=== PATIENT | male | born 1970 | race African-American/Black ===

== ENCOUNTER 2017-12-06 17:23 | Emergency (ER) | payer OTHER | END 2017-12-06 20:06 | disposition left against medical advice (07) | LOC: ERS 17:23 | DX: R10.9 Unspecified abdominal pain (principal); F17.210 Nicotine dependence, cigarettes, uncomplicated | CPT/HCPCS: 36416 ==

== ENCOUNTER 2018-05-21 14:25 | Emergency (ER) | payer SELFPAY ==
[2018-05-21 14:59] LABS: Hemoglobin 17.2 g/dL (14.0-18.0); Mean Corpuscular HGB CONC 34.7 g/dL (32.0-36.0); Mean Corpuscular Hemoglobin 30.2 pg (27.0-31.0); Mean Corpuscular Volume 87.1 fL (78.0-98.0); Platelet Count 265 thou/uL (130-400); RBC Distribution Width 12.1 % (11.5-14.5); Red Blood Cell (RBC) Count 5.69 mill/uL (4.70-6.10); White Blood Cell (WBC) Count 5.8 thou/uL (4.8-10.8)
[2018-05-21 15:19] LABS: Eosinophils 2 % (0-10); Lymphocytes 26 % (21-51); MDiff Complete? YES; Monocytes 4 % (0-10); Neutrophil 68 % (42-75); PLT Morphology Comment Appears Adequate
[2018-05-21 15:24] LABS: ALT (SGPT) 22 U/L (8-55); AST (SGOT) 18 U/L (5-34); Albumin 3.8 g/dL (3.5-5.0); Alkaline Phosphatase 62 U/L (40-150); Anion Gap 12 mmol/L (10-20); BUN (Urea Nitrogen) 11 mg/dL (8.9-20.6); Bilirubin, Total 0.4 mg/dL (0.2-1.2); Calc. Creatinine Clearance 0 mL/min (70-130); Carbon Dioxide 23 mmol/L (22-29); Chloride 102 mmol/L (98-107); Estimated GFR-MDRD Greater than 90; Globulin 2.8 g/dL (2.4-3.5); Glucose 151 mg/dL (70-105); Potassium 3.9 mmol/L (3.5-5.1); Protein, Total 6.6 g/dL (6.0-8.3); Sodium 133 mmol/L (136-145)
[2018-05-21 17:22] LABS: Troponin I Less than 0.010 ng/mL (< 0.028)
== END 2018-05-21 17:50 | disposition home or self-care (01) ==
LOC: ERS 14:25
DX: R42 Dizziness and giddiness (principal); R55 Syncope and collapse; R73.9 Hyperglycemia, unspecified; I10 Essential (primary) hypertension; K21.9 Gastro-esophageal reflux disease without esophagitis; F17.210 Nicotine dependence, cigarettes, uncomplicated
CPT/HCPCS: 36415; 80053; 84484; 85025; 93005; 94760

== ENCOUNTER 2020-01-16 02:03 | Emergency (ER) | payer SELFPAY ==
[2020-01-16] MEDS ORDERED: Nitroglycerin 0.4 MG TAB 1 EACH ONE (02:42)
[2020-01-16] MEDS ORDERED: Nitroglycerin 0.4mg/Hour PATCH ONE (02:42)
[2020-01-16] MEDS ORDERED: Aspirin Chewable 81 MG TAB ONE (02:42)
[2020-01-16 02:43] LABS: Hemoglobin 16.5 g/dL (14.0-18.0); Mean Corpuscular HGB CONC 33.9 g/dL (32.0-36.0); Mean Corpuscular Hemoglobin 29.9 pg (27.0-31.0); RBC Distribution Width 11.9 % (11.5-14.5); Red Blood Cell (RBC) Count 5.52 mill/uL (4.70-6.10)
[2020-01-16 02:44] LABS: ALT (SGPT) 28 U/L (8-55); AST (SGOT) 25 U/L (5-34); Alkaline Phosphatase 82 U/L (40-110); Anion Gap 16 mmol/L (10-20); BUN (Urea Nitrogen) 13 mg/dL (8.9-20.6); Bilirubin, Total 0.4 mg/dL (0.2-1.2); CK (CPK) 482 U/L (30-200); Calc. Creatinine Clearance 0 mL/min (70-130); Calcium 9.9 mg/dL (7.8-10.44); Carbon Dioxide 25 mmol/L (22-29); Chloride 102 mmol/L (98-107); Estimated GFR-MDRD 83; Globulin 3.7 g/dL (2.4-3.5); Glucose 104 mg/dL (70-105); Potassium 3.7 mmol/L (3.5-5.1); Protein, Total 8.7 g/dL (6.0-8.3); Sodium 139 mmol/L (136-145)
[2020-01-16 02:49] LABS: Band 1 % (5-11); Eosinophils 2 % (0-10); Lymphocytes 46 % (21-51); MDiff Complete? YES; Mean Platelet Volume 7.6 fL (7.4-10.4); Monocytes 10 % (0-10); Neutrophil 41 % (42-75); Platelet Count 307 thou/uL (130-400); White Blood Cell (WBC) Count 6.2 thou/uL (4.8-10.8)
--- NOTE | 2020-01-16 07:55 | RAD ---
SINGLE VIEW CHEST: Date: 01/16/2020 COMPARISON: 01/04/2016. HISTORY: Chest pain. FINDINGS: Single view of the chest shows a normal sized cardiomediastinal silhouette. There is no evidence of c onsolidation, mass, or pleural effusion. The bones are unremarkable. IMPRESSION: No evidence of acute cardiopulmonary disease. POS: [facility]
--- NOTE | 2020-01-19 12:22 | EKG ---
Test Reason : Blood Pressure : / mmHG Vent. Rate : 087 BPM Atrial Rate : 087 BPM P-R Int : 152 ms QRS Dur : 074 ms QT Int : 372 ms P-R-T Axes : 032 052 063 degrees QTc Int : 447 ms Normal sinus rhythm Anterior infarct , age undetermined Abnormal ECG Confirmed by ROBLES KNOTT ([id number]), newspaper editor managing GEO GONZALEZ ([id number]) on 01/19/2020 12:22:14 PM Referred By: Confirmed By:ROBLES KNOTT
== END 2020-01-16 03:19 | disposition home or self-care (01) ==
LOC: ERS 02:03
DX: R07.89 Other chest pain (principal); I10 Essential (primary) hypertension; K21.9 Gastro-esophageal reflux disease without esophagitis
CPT/HCPCS: 71045; 80053; 82550; 83690; 84484; 85025; 93005